=== PATIENT | male | born 1990 | race African-American/Black ===

== ENCOUNTER → 2017-02-13 11:03 | Emergency (ER) | payer OTHER ==
[~2017-02-13 11:03] MED LIST: HYDROmorphone* 1 MG/ML 1 ML SYR IV SLOW PU ONE; Magnesium Sulfate 2 GM IV* 2 GM/50 ML BAG IVPB ONE; NS 0.9% 1000 ML* 1,000 ML IV ONE; Ondansetron INJ* 2 MG/ML VIAL IV ONE
[2017-02-13 11:56] LABS: Hematocrit 53 % (42-52); Hemoglobin 18.1 g/dl (14.0-18.0); Mean Corpuscular HGB Conc 34 g/dl (31-36); Mean Corpuscular Hemoglobin 30 pg (27-31); Mean Corpuscular Volume 87 fL (80-94); Mean Platelet Volume 8 um3 (7.4-10.4); Red Blood Count 6.03 10^6/ul (4.0-5.4); Red Cell Distribution Width 14 % (10.5-15); White Blood Count 14.3 10^3/ul (3.5-10.8)
[2017-02-13 11:59] LABS: Add Diff/Slide Review? Slide Review Added; Comments Flag Yes
[2017-02-13 12:16] LABS: ALT 10 U/L (7-52); AST 20 U/L (13-39); Albumin 4.5 g/dL (3.2-5.2); Alkaline Phosphatase 62 U/L (34-104); Anion Gap 15 mmol/L (2-11); BUN/Creatinine Ratio 12.7 (8-20); Blood Urea Nitrogen 18 mg/dL (6-24); C Reactive Protein < 1.00 mg/L (< 5.00); CO2 Carbon Dioxide 18 mmol/L (22-32); Calcium 10.4 mg/dL (8.6-10.3); Chloride 102 mmol/L (101-111); Creatine Kinase 102 U/L (10-223); EGFR African American 78.8 (>60); EGFR Non-African American 61.3 (>60); Globulin 3.7 g/dL (2-4); Glucose 109 mg/dL (70-100); Lipase 22 U/L (11.0-82.0); Magnesium 1.7 mg/dL (1.9-2.7); Potassium 3.8 mmol/L (3.5-5.0); Sodium 135 mmol/L (133-145); Total Protein 8.2 g/dL (6.4-8.9)
--- NOTE | 2017-02-13 12:28 | RAD ---
INDICATION: Shortness of breath. COMPARISON: There are no prior studies available for comparison. TECHNIQUE: A portable view of the chest was obtained. FINDINGS: Cardiac and mediastinal contours appear to be within normal limits. The lungs are clear. No pleural effusion is seen. IMPRESSION: NO EVIDENCE FOR ACUTE DISEASE.
[2017-02-13 16:22] LABS: Hematocrit 45 % (42-52); Hemoglobin 15.3 g/dl (14.0-18.0); Mean Corpuscular HGB Conc 34 g/dl (31-36); Mean Corpuscular Hemoglobin 30 pg (27-31); Mean Corpuscular Volume 88 fL (80-94); Mean Platelet Volume 7 um3 (7.4-10.4); Red Blood Count 5.06 10^6/ul (4.0-5.4); Red Cell Distribution Width 13 % (10.5-15); White Blood Count 13.1 10^3/ul (3.5-10.8)
[2017-02-13 16:35] LABS: Albumin 3.5 g/dL (3.2-5.2); BUN/Creatinine Ratio 12.3 (8-20); Calcium 8.3 mg/dL (8.6-10.3); EGFR African American 93.9 (>60); Globulin 2.6 g/dL (2-4); Potassium 3.8 mmol/L (3.5-5.0); Total Bilirubin 1.8 mg/dL (0.2-1.0); Total Protein 6.1 g/dL (6.4-8.9)
--- NOTE | 2017-02-13 18:04 | ED ---
Venkatesh Frank Thomas, scribed for Jase Corral MD on 02/13/17 at 1137 . Shortness of Breath - HPI Summary HPI Summary: The pt is a 26 y/o M BIBA c/o SOB that began this AM at 10:00. He denies CP, pedal edema, fever, chills, cough, diarrhea, and parasthesias. He denies a PMHx of asthma. 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 He states that he is "under stress all of the time". - History of Current Complaint Chief Complaint: EDRespiratoryDistress Time Seen by Provider: 02/13/17 11:05 Hx Obtained From: Patient Onset/Duration: Lasting Hours - onset 10am, Still Present Alleviating Factors: Nothing - Allergy/Home Medications Allergies/Adverse Reactions: Allergies Allergy/AdvReac Type Severity Reaction Status Date / Time No Known Allergies Allergy Verified 02/13/17 11:21 Home Medications: Home Medications NK [No Home Medications Reported] 02/13/17 [History Confirmed 02/13/17] PMH/Surg Hx/FS Hx/Imm Hx Previously Healthy: Yes Respiratory History: Denies: Hx Asthma Opthamlomology History: Denies: Hx Legally Blind Infectious Disease History: No Infectious Disease History: Denies: Traveled Outside the [place] in Last 30 Days - Family History Known Family History: Negative: Cardiac Disease, Diabetes - Social History Occupation: Student - at [employer] Review of Systems Constitutional: Negative Negative: Fever, Chills Eyes: Negative ENT: Negative Cardiovascular: Negative Negative: Chest Pain Positive: Shortness Of Breath Gastrointestinal: Negative Negative: Diarrhea Genitourinary: Negative Musculoskeletal: Negative Negative: Edema - pedal Skin: Negative Neurological: Negative Negative: Paresthesia Positive: Other - POS: "under stress all of the time" All Other Systems Reviewed And Are Negative: Yes Physical Exam - Summary Physical Exam Summary: Gen: well-appearing, no pain distress Skin: warm, color, dry Head: normal Eyes: EOMI, PORSCHE ENT: normal Neck: supple, nontender Resp: CTA, breath sounds present Cardio: RRR Abd: soft, nontender Bowel: present Musc: normal, strength/ROM intact Neuro: normal, sensory/motor intact, A&O x3 Psych: anxious Triage Information Reviewed: Yes Vital Signs On Initial Exam: Initial Vitals Temp Pulse Resp BP Pulse Ox 98.8 F 98 20 115/57 100 02/13/17 11:18 02/13/17 11:18 02/13/17 11:18 02/13/17 11:18 02/13/17 11:18 Vital Signs Reviewed: Yes Diagnostics - Vital Signs Vital Signs Temp Pulse Resp BP Pulse Ox 02/13/17 11:22 98.8 F 88 12 101/64 100 02/13/17 11:18 98.8 F 98 20 115/57 100 - Laboratory Lab Results: Lab Results 02/13/17 02/13/17 02/13/17 Range/Units 11:33 11:33 11:33 WBC 14.3 H (3.5-10.8) 10^3/ul RBC 6.03 H (4.0-5.4) 10^6/ul Hgb 18.1 H (14.0-18.0) g/dl Hct 53 H (42-52) % MCV 87 (80-94) fL MCH 30 (27-31) pg MCHC 34 (31-36) g/dl RDW 14 (10.5-15) % Plt Count 258 (150-450) 10^3/ul MPV 8 (7.4-10.4) um3 Neut % (Auto) 88.0 H (38-83) % Lymph % (Auto) 7.5 L (25-47) % Grainger % (Auto) 3.6 (1-9) % Eos % (Auto) 0.1 (0-6) % Baso % (Auto) 0.8 (0-2) % Absolute Neuts (auto) 12.6 H (1.5-7.7) 10^3/ul Absolute Lymphs (auto) 1.1 (1.0-4.8) 10^3/ul Absolute Monos (auto) 0.5 (0-0.8) 10^3/ul Absolute Eos (auto) 0 (0-0.6) 10^3/ul Absolute Basos (auto) 0.1 (0-0.2) 10^3/ul Absolute Nucleated RBC 0.03 10^3/ul Nucleated RBC % 0.2 INR (Anticoag Therapy) 1.10 (0.89-1.11) APTT 31.1 (26.0-36.3) seconds D-Dimer, Quantitative < 200 (Less Than 230) ng/mL Sodium 135 (133-145) mmol/L Potassium 3.8 (3.5-5.0) mmol/L Chloride 102 (101-111) mmol/L Carbon Dioxide 18 L (22-32) mmol/L Anion Gap 15 H (2-11) mmol/L BUN 18 (6-24) mg/dL Creatinine 1.42 H (0.67-1.17) mg/dL Est GFR ( Amer) 78.8 (>60) Est GFR (Non-Af Amer) 61.3 (>60) BUN/Creatinine Ratio 12.7 (8-20) Glucose 109 H (70-100) mg/dL Lactic Acid (0.5-2.0) mmol/L Calcium 10.4 H (8.6-10.3) mg/dL Magnesium 1.7 L (1.9-2.7) mg/dL Total Bilirubin 2.40 H (0.2-1.0) mg/dL AST 20 (13-39) U/L ALT 10 (7-52) U/L Alkaline Phosphatase 62 (34-104) U/L Total Creatine Kinase 102 (10-223) U/L CK-MB (CK-2) 1.1 (0.6-6.3) ng/mL Troponin I 0.00 (<0.04) ng/mL C-Reactive Protein < 1.00 (< 5.00) mg/L B-Natriuretic Peptide ( - 100) pg/mL Total Protein 8.2 (6.4-8.9) g/dL Albumin 4.5 (3.2-5.2) g/dL Globulin 3.7 (2-4) g/dL Albumin/Globulin Ratio 1.2 (1-3) Lipase 22 (11.0-82.0) U/L TSH 2.50 (0.34-5.60) mcIU/mL 02/13/17 02/13/17 02/13/17 Range/Units 11:33 11:33 16:10 WBC 13.1 H (3.5-10.8) 10^3/ul RBC 5.06 (4.0-5.4) 10^6/ul Hgb 15.3 (14.0-18.0) g/dl Hct 45 (42-52) % MCV 88 (80-94) fL MCH 30 (27-31) pg MCHC 34 (31-36) g/dl RDW 13 (10.5-15) % Plt Count 204 (150-450) 10^3/ul MPV 7 L (7.4-10.4) um3 Neut % (Auto) 88.8 H (38-83) % Lymph % (Auto) 7.0 L (25-47) % Grainger % (Auto) 3.7 (1-9) % Eos % (Auto) 0 (0-6) % Baso % (Auto) 0.5 (0-2) % Absolute Neuts (auto) 11.6 H (1.5-7.7) 10^3/ul Absolute Lymphs (auto) 0.9 L (1.0-4.8) 10^3/ul Absolute Monos (auto) 0.5 (0-0.8) 10^3/ul Absolute Eos (auto) 0 (0-0.6) 10^3/ul Absolute Basos (auto) 0.1 (0-0.2) 10^3/ul Absolute Nucleated RBC 0.05 10^3/ul Nucleated RBC % 0.4 INR (Anticoag Therapy) (0.89-1.11) APTT (26.0-36.3) seconds D-Dimer, Quantitative (Less Than 230) ng/mL Sodium (133-145) mmol/L Potassium (3.5-5.0) mmol/L Chloride (101-111) mmol/L Carbon Dioxide (22-32) mmol/L Anion Gap (2-11) mmol/L BUN (6-24) mg/dL Creatinine (0.67-1.17) mg/dL Est GFR ( Amer) (>60) Est GFR (Non-Af Amer) (>60) BUN/Creatinine Ratio (8-20) Glucose (70-100) mg/dL Lactic Acid 3.8 H* (0.5-2.0) mmol/L Calcium (8.6-10.3) mg/dL Magnesium (1.9-2.7) mg/dL Total Bilirubin (0.2-1.0) mg/dL AST (13-39) U/L ALT (7-52) U/L Alkaline Phosphatase (34-104) U/L Total Creatine Kinase (10-223) U/L CK-MB (CK-2) (0.6-6.3) ng/mL Troponin I (<0.04) ng/mL C-Reactive Protein (< 5.00) mg/L B-Natriuretic Peptide 13 ( - 100) pg/mL Total Protein (6.4-8.9) g/dL Albumin (3.2-5.2) g/dL Globulin (2-4) g/dL Albumin/Globulin Ratio (1-3) Lipase (11.0-82.0) U/L TSH (0.34-5.60) mcIU/mL 02/13/17 02/13/17 Range/Units 16:10 16:10 WBC (3.5-10.8) 10^3/ul RBC (4.0-5.4) 10^6/ul Hgb (14.0-18.0) g/dl Hct (42-52) % MCV (80-94) fL MCH (27-31) pg MCHC (31-36) g/dl RDW (10.5-15) % Plt Count (150-450) 10^3/ul MPV (7.4-10.4) um3 Neut % (Auto) (38-83) % Lymph % (Auto) (25-47) % Grainger % (Auto) (1-9) % Eos % (Auto) (0-6) % Baso % (Auto) (0-2) % Absolute Neuts (auto) (1.5-7.7) 10^3/ul Absolute Lymphs (auto) (1.0-4.8) 10^3/ul Absolute Monos (auto) (0-0.8) 10^3/ul Absolute Eos (auto) (0-0.6) 10^3/ul Absolute Basos (auto) (0-0.2) 10^3/ul Absolute Nucleated RBC 10^3/ul Nucleated RBC % INR (Anticoag Therapy) (0.89-1.11) APTT (26.0-36.3) seconds D-Dimer, Quantitative (Less Than 230) ng/mL Sodium 137 (133-145) mmol/L Potassium 3.8 (3.5-5.0) mmol/L Chloride 107 (101-111) mmol/L Carbon Dioxide 22 (22-32) mmol/L Anion Gap 8 (2-11) mmol/L BUN 15 (6-24) mg/dL Creatinine 1.22 H (0.67-1.17) mg/dL Est GFR ( Amer) 93.9 (>60) Est GFR (Non-Af Amer) 73.0 (>60) BUN/Creatinine Ratio 12.3 (8-20) Glucose 108 H (70-100) mg/dL Lactic Acid 1.2 (0.5-2.0) mmol/L Calcium 8.3 L (8.6-10.3) mg/dL Magnesium (1.9-2.7) mg/dL Total Bilirubin 1.80 H (0.2-1.0) mg/dL AST 14 (13-39) U/L ALT 8 (7-52) U/L Alkaline Phosphatase Pending (34-104) U/L Total Creatine Kinase (10-223) U/L CK-MB (CK-2) (0.6-6.3) ng/mL Troponin I (<0.04) ng/mL C-Reactive Protein (< 5.00) mg/L B-Natriuretic Peptide ( - 100) pg/mL Total Protein 6.1 L (6.4-8.9) g/dL Albumin 3.5 (3.2-5.2) g/dL Globulin 2.6 (2-4) g/dL Albumin/Globulin Ratio 1.3 (1-3) Lipase (11.0-82.0) U/L TSH (0.34-5.60) mcIU/mL Result Diagrams: 02/13/17 16:10 02/13/17 16:10 Lab Statement: Any lab studies that have been ordered have been reviewed, and results considered in the medical decision making process. - Radiology CXR Xray Interpretation: No Acute Changes - No evidence for acute disease Radiology Interpretation Completed By: Radiologist - EKG 11:56 Cardiac Rate: NL - 61 BPM EKG Interpretation: Normal Sinus. No Ectopy. Normal ST. 12:45 Cardiac Rate: NL - 63 BPM EKG Interpretation: Normal Sinus. No Ectopy. Normal ST. Course/Dx - Course Course Of Treatment: NO CRITICAL CARE TIME. DUE TO SX AND LABS PLANNED TO ADMIT PATIENT. HE DECLINED ADMISSION. AFTER IVF PATIENT FEELS BETTER, LABS IMPROVED BUT NOT COMPLETELY NORMAL. THIS WAS ALL DISCUSSED WITH PATIENT, HE WISHES TO GO HOME. WILL F/U WITH DAVID. - Diagnoses Provider Diagnoses: Dehydration, Creatinine elevation, Dyspnea, Elevated bilirubin, Near syncope Discharge - Discharge Plan Condition: Stable Disposition: HOME Patient Education Materials: Dehydration (ED), Dyspnea (ED), Near Syncope (ED) Forms: *School Release Referrals: No Primary Care Phys,NOPCP [Primary Care Provider] - Additional Instructions: FOLLOW UP WITH DAVID. YOUR CREATININE AND BILIRUBIN WERE BOTH ELEVATED. GET THESE RECHECKED WITH DAVID. RETURN TO THE EMERGENCY DEPARTMENT FOR ANY WORSENING OF YOUR CONDITION OR QUESTIONS OR CONCERNS. The documentation as recorded by the Venkatesh jackson Thomas accurately reflects the service I personally performed and the decisions made by me, Jase Corral MD.
[2017-02-13 18:24] VITALS: BP 134/76
--- NOTE | 2017-02-13 22:00 | CONS ---
CC: [facility] * MEDICINE CONSULTATION: DATE OF CONSULT: 02/13/17 PROVIDER: Jacek Peña NP CONSULTING PHYSICIAN: Judah Monet MD (as dictated by Jacek Peña NP) ATTENDING PHYSICIAN: Jase Corral MD, Emergency Medicine. PRIMARY CARE PROVIDER: [facility]. CHIEF COMPLAINT: Dizziness, hyperventilation and weakness. REASON FOR CONSULTATION: Evaluation for admission. HISTORY OF PRESENT ILLNESS: Mr. Montgomery is a 26-year-old male patient who presented to the hospital today via EMS services with concern for a near syncopal episode and hyperventilation. Mr. Montgomery does recall the events of today and reports that last evening he was starting to feel weak and reported not eating all day. The patient then ate some dinner and went to bed early. He woke up early this morning with a plan to go into town to get some food and then continue studying. He states that on his way down from his apartment on the elevator, he started to feel lightheaded, so he sat down in the lobby, at which point he remembers that his breathing became heavier and he started to shake. He states he could not catch his breath and started to have some chest tightness and pain. He was attended to by local residents and the apartment staff, given water and EMS services was called. He states he started to feel a little better, but then had difficulty getting on to the stretcher and required assistance by the EMS services. They did convince him to come into the hospital where he does report feeling somewhat better since he has been here, but still reports a transient episode where he felt like it was hard to breathe and had a recurrence of chest tightening, which is now resolved. Mr. 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 He does report that he is a hard worker and conscientious student and does study intently. He states that he often "puts off eating and drinking and sleeping not because I forget, but because I don't want to get out of my zone of studying." Here in the hospital, he admits to feeling very anxious about missing a final today and that he has a final coming up on Monday, and feels that he may miss that if he is to stay here in the hospital. During his initial evaluation, the patient's labs were concerning for an elevated WBC count of 14.3, hemoglobin and hematocrit of 18.1 and 53, an elevated lactic of 3.8, elevated creatinine of 1.42, low mag of 1.7 and a total bilirubin of 2.4. PAST MEDICAL HISTORY: The patient reports allergies and childhood asthma. He does also report that approximately 2 to 3 weeks ago, he was diagnosed with a tooth abscess and was fully treated with antibiotics and denies any pain at this time. HOME MEDICATIONS: None. ALLERGIES: No known drug or food allergies. FAMILY HISTORY: The patient is unaware of any family history for his parents or any of the family members. SOCIAL HISTORY: He denies any history of tobacco or illicit drug use. He reports very rare alcohol use. 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 He lives by himself. His mother, Rosy Montgomery, is his healthcare proxy. She can be reached at [phone]. REVIEW OF SYSTEMS: As per HPI, all others not mentioned are negative. A 14- point review of systems was completed. PHYSICAL EXAM: General: This is a young well-appearing male patient who is lying in the ED stretcher. He does appear somewhat anxious. Vital Signs: Temperature 98.8, heart rate 92, respiratory rate 16, blood pressure 134/75, and O2 saturation is 100% on room air. HEENT: Head is atraumatic, normocephalic. Face is symmetrical. Pupils are equal, round, and reactive to light. Extraocular movements are intact. Oral mucosa appears moist. Neck is supple. No lymphadenopathy appreciated. Cardiac: S1, S2 heart sounds. Regular rate and rhythm. No murmurs, rubs, or gallops. Respiratory: Lungs are clear to auscultation. Abdomen is soft, nontender, and nondistended. Extremities: No peripheral edema noted. No clubbing or cyanosis noted. The patient has full range of motion. Skin: Limited assessment, but appears grossly intact. Neuro: No focal deficits noted. The patient moves all extremities. Sensation is intact to light touch. The patient is alert and oriented. DIAGNOSTIC STUDIES/LAB DATA: CBC: WBC 14.3, hemoglobin 18.1, hematocrit 53, platelet count 258. D-dimer is less than 200. CMP: Sodium 135, potassium 3.8 , chloride 102, carbon dioxide 18, BUN 18, creatinine 1.42, glucose 109, lactic acid 3.8, calcium 10.4, magnesium 1.7, total bilirubin 2.4, AST 20, ALT 10, alk phos 62. Total CK 102, CK-MB 1.1. Troponin 0.00. CRP less than 1. BNP 13. Albumin 4.5, lipase 22. TSH 2.5. EKG showed sinus rhythm with T-wave inversions in V1 and V2. There are no previous EKGs for comparison. Chest x-ray shows no active cardiopulmonary disease. ASSESSMENT AND PLAN: Mr. 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 The patient has been recommended to come in on observation status to monitor for further signs of sepsis and to receive hydration. The elevated white blood cell count may represent some inflammation from the events of earlier. The patient does show some significant dehydration with his hemoglobin and hematocrit as well as the elevated creatinine. Of most concern is the patient's lactic acid of 3.8, which again may represent some early hypoxia or sepsis but may also be a false positive from the tourniquet. Given that the patient has multiple abnormal lab values, we did discuss that it may be beneficial for him to have further monitoring and treatment and to receive IV hydration and recheck these values in the morning. However, the patient is very concerned about missing any further time of studying or school and has declined these recommendations. He verbalizes understanding that this is concerning for a potential infection or other acute illness but prefers to remain in the ER, receive fluids and is amenable to rechecking his labs prior to discharge. This was discussed in consultation with Dr. Corral, who is in agreement with this. He will continue hydrating the patient and will follow on these laboratory values. In the event that these remain unchanged and the patient has a recurrence or worsening of symptoms, we are available to admit the patient to the hospital medicine service, otherwise we are in agreement with the plan to continue hydration, magnesium repletion and follow up lab values with outpatient followup with [facility]. TIME SPENT: On this consultation was approximately 50 minutes, more than half the time was spent [id number] with the patient obtaining history and physical , performing physical examination, and reviewing the plan of care. Plan of care also reviewed with my attending, Dr. Monet, who is in agreement. Thank you for this consultation. JACEK PEÑA, LION [id number]/[id number] #: [id number] KEYSHA
== END | disposition home or self-care (01) ==
LOC: ED 11:03
DX: R06.02 Shortness of breath (principal)
CPT/HCPCS: 36415; 71010; 80053; 82550; 82553; 83605; 83690; 83735; 83880; 84443; 84484; 85025; 85379; 85610; 85730; 86140; 93005; 96374; 96375; 99283